=== PATIENT | female | born 1990 | race Caucasian/White ===

== ENCOUNTER 2019-01-11 13:32 | Emergency (ER) | payer OTHER ==
[~2019-01-11] VITALS: Ht 160 cm; Wt 84.4 kg
[2019-01-11 13:39] VITALS: BP 142/79
--- NOTE | 2019-01-11 13:39 | NUR ---
PT BIB SELF C/O RASH X1 DAY. PT REPORTS FIRST NOTICING BURNING RASH ON LATERAL RT THIGH WITH PAIN AT 6/10. PT DENIES NEW DETERGENT OR BEING OUTDOORS. DENIES N/V/D, FEVER, OR SICK CONTACTS. VSS. ER MD TO SEE PT. MEDHX:DENIES RX:DENIES
[2019-01-11 14:32] VITALS: BP 142/79
--- NOTE | 2019-01-11 14:32 | NUR ---
Patient discharged with v/s stable. Written and verbal after care instructions given and explained. Patient alert, oriented and verbalized understanding of instructions. Ambulatory with steady gait. All questions addressed prior to discharge. ID band removed. Patient advised to follow up with PMD. Rx of BENADRYL AND PREDNISONE given. Patient educated on indication of medication including possible reaction and side effects. Opportunity to ask questions provided and answered.
== END 2019-01-11 14:32 | disposition home or self-care (01) ==
LOC: MED 13:32
DX: R21 Rash and other nonspecific skin eruption (principal); Z90.49 Acquired absence of other specified parts of digestive tract; Z98.890 Other specified postprocedural states
CPT/HCPCS: 99283